=== PATIENT | female | born 1975 | race African-American/Black ===

== ENCOUNTER 2020-08-09 18:17 | Emergency (ER) | payer OTHER ==
[~2020-08-09] VITALS: Ht 170.2 cm; Wt 77.1 kg
[2020-08-09 21:45] VITALS: BP 130/90
== END 2020-08-09 21:45 | disposition home or self-care (01) ==
LOC: ED 18:17
DX: J20.9 Acute bronchitis, unspecified (principal); U07.1 COVID-19
CPT/HCPCS: 36415; 87502; 87635; 87651; 99283; U0003

== ENCOUNTER 2020-12-16 17:45 | Outpatient (CLI) | payer BC | END 2020-12-16 20:43 | disposition home or self-care (01) | LOC: RAD 17:45 | PROVIDERS: ATTEND Internal Medicine | DX: R76.11 Nonspecific reaction to tuberculin skin test without active tuberculosis (principal) ==